=== PATIENT | female | born 1935 | race Caucasian/White ===

== ENCOUNTER 2019-06-27 09:49 | Emergency (ER) | payer MEDICARE, OTHER ==
--- NOTE | 2019-06-27 10:52 | EDM.PDOC ---
ED HPI GENERAL MEDICAL PROBLEM - General Chief Complaint: Respiratory Problem Stated Complaint: COUGHING PT HAS COPD Time Seen by Provider: 06/27/19 10:15 Source of Information: Reports: Patient, Family History Limitations: Reports: No Limitations - History of Present Illness INITIAL COMMENTS - FREE TEXT/NARRATIVE: 84-year-old female with chronic COPD, has occasional exacerbations. She has had an increasing cough and shortness of breath over the past 5 days, went into the clinic 2 days ago and was started on Zithromax. She is not improving. She does not have a fever or significant sputum production. She does have an albuterol nebulizer at home which helps. She has needed steroids in the past and she feels she is at that point. Onset: Gradual Duration: Day(s): (5-7 days) Associated Symptoms: Reports: Cough, Shortness of Breath. Denies: Chest Pain, Nausea/Vomiting, Weakness lower back Pain Score (Numeric/FACES): 3 - Related Data Allergies Allergy/AdvReac Type Severity Reaction Status Date / Time bee venom protein (honey bee) Allergy Swelling Verified 06/27/19 10:22 Home Meds: Home Meds Acyclovir [Zovirax 5% Crm] 1 gm TOP Q3H 08/03/18 [History] Ascorbate Calcium [Vitamin C] 500 mg PO ASDIRECTED 08/03/18 [History] Aspirin 81 mg PO ASDIRECTED 08/03/18 [History] Biotin 1 tab PO ASDIRECTED 08/03/18 [History] Brinzolamide [Azopt 1% Ophth Susp] 1 drop EYEBOTH BID 08/03/18 [History] Calcium Carbonate/Vitamin D3 [Calcium Carbonate/Vitamin D 600 MG-200 Unit] 1 tab PO DAILY 08/03/18 [History] Diclofenac Sodium [Voltaren] 4 gm TOP QID 08/03/18 [History] EPINEPHrine [Epinephrine] 0.3 mg IM ASDIRECTED 08/03/18 [History] Emu Oil 1 gm TOP ASDIRECTED PRN 08/03/18 [History] Gluc/Nigel-Msm#2/C/D3/Yunior/Born [Hkekmjnbso-Lpnkoatijgh-WXP] 1,500 mg PO BID 07/13 [History] Ibuprofen [Motrin] 800 mg PO BID 08/03/18 [History] Multivit-Min/Iron Fum/Folic AC [Kvcsl-Dxcgmat-Czhmljrr Tablet] 1 tab PO DAILY [History] Olmesartan Medoxomil [Benicar] 20 mg PO DAILY 08/03/18 [History] Ranitidine HCl 150 mg PO BID 08/03/18 [History] Albuterol Sulfate 3 ml INH ASDIRECTED 06/27/19 [History] Albuterol [Ventolin HFA] 2 puff INH Q4HR PRN 06/27/19 [History] Azithromycin [Zithromax] 250 mg PO ASDIRECTED 06/27/19 [History] Past Medical History HEENT History: Reports: Cataract, Glaucoma Cardiovascular History: Reports: Hypertension Respiratory History: Reports: COPD 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 Denies: Fever, Chills HEENT: Denies: Throat Pain Respiratory: Reports: Shortness of Breath, Wheezing, Cough. Denies: Sputum Cardiovascular: Denies: Chest Pain GI/Abdominal: Denies: Nausea, Vomiting Neurological: Denies: Headache ED EXAM, GENERAL - Physical Exam Exam: See Below Exam Limited By: No Limitations General Appearance: Alert, No Apparent Distress Respiratory/Chest: No Respiratory Distress, Wheezing (Diffuse expiratory wheezes , bilateral rhonchi) Cardiovascular: Regular Rate, Rhythm Extremities: No: Pedal Edema Neurological: Alert, Oriented Psychiatric: Normal Affect, Normal Mood Skin Exam: Warm, Dry Course - Vital Signs Last Recorded V/S: Last Vital Signs Temp 97.2 F 06/27/19 10:31 Pulse 113 H 06/27/19 10:31 Resp 118 H 06/27/19 10:31 BP 169/71 H 06/27/19 10:31 Pulse Ox 95 06/27/19 10:31 - Re-Assessments/Exams Free Text/Narrative Re-Assessment/Exam: 06/27/19 10:51 Patient will be placed on prednisone 50 mg daily for the next 6 days. Continue the Zithromax, and return if worsening. Departure - Departure Time of Disposition: 11:13 Disposition: Home, Self-Care 01 Clinical Impression: COPD with exacerbation - Discharge Information Instructions: Chronic Obstructive Pulmonary Disease, [id number] Referrals: Jen Rosales MD [Primary Care Provider] - Forms: ED Department Discharge Care Plan Goals: Finish the Zithromax as prescribed, take 5 pills of prednisone daily with your first food for 6 consecutive days. Return anytime if worsening despite treatment , or consider rechecking in 2-3 days if not improving satisfactorily.
== END 2019-06-27 11:13 | disposition home or self-care (01) ==
LOC: JP.ED 09:49
DX: J44.1 Chronic obstructive pulmonary disease with (acute) exacerbation (principal); I10 Essential (primary) hypertension; Z91.030 Bee allergy status; Z79.899 Other long term (current) drug therapy; Z79.82 Long term (current) use of aspirin; Z90.49 Acquired absence of other specified parts of digestive tract; Z79.51 Long term (current) use of inhaled steroids
CPT/HCPCS: 99282

== ENCOUNTER 2023-11-17 09:48 | Inpatient (IN) | payer MEDICARE, OTHER ==
[2023-11-17] MEDS ORDERED: Albuterol/Ipratropium 3.0-0.5 MG/3 ML Neb Soln NEB ONE (10:11)
[2023-11-17 10:36] LABS: BASE EXCESS VENOUS 3.1 mm/L; BICARBONATE,VENOUS 27.5 mmol/L; CARBOXYHEMOGLOBIN 2.3 % (0.0-1.6); METHEMOGLOBIN 1.1 %; O2 SATURATION VENOUS 96.7; OXYHEMOGLOBIN 93.4 %; PCO2 VENOUS 43.6 mm/Hg; PH,VENOUS 7.417 (7.350-7.450); PO2 VENOUS 85.8 mm/Hg; TOTAL HEMOGLOBIN 11.7 g/dL (12.0-16.0)
[2023-11-17 10:37] LABS: BASOPHILS ABSOLUTE AUTO 0.08 K/uL (0.00-0.10); BASOPHILS PERCENT AUTO 0.4 % (0.1-1.3); EOSINOPHILS ABSOLUTE AUTO 0.19 K/uL (0.00-0.40); HEMATOCRIT 35.1 % (34.3-46.0); HEMOGLOBIN 11.1 g/dL (11.2-15.5); IMMATURE GRAN ABSOLUTE AUTO 0.37 K/uL (0.00-0.23); IMMATURE GRAN PERCENT AUTO 1.9 % (0.0-0.7); LYMPHOCYTES ABSOLUTE AUTO 0.92 K/uL (0.8-3.3); LYMPHOCYTES PERCENT AUTO 4.8 % (11.4-47.7); MEAN CORPUSCULAR HEMOGLOBIN 29.7 pg (31.6-35.5); MEAN CORPUSCULAR HGB CONC 31.6 g/dL (31.6-35.5); MEAN CORPUSCULAR VOLUME 93.9 fL (81.4-99.0); MONOCYTES ABSOLUTE AUTO 1.16 K/uL (0.20-0.90); NEUTROPHILS PERCENT AUTO 85.9 % (40.0-78.1); PLATELET COUNT,PLT 331 K/uL (130-375); RED BLOOD CELL COUNT 3.74 M/uL (3.77-5.24); WHITE BLOOD CELL COUNT,WBC 19.3 K/uL (3.2-11.0)
[2023-11-17] MEDS ORDERED: cefTRIAXone 1 GM in Sodium Chloride 0.9% 50 ML IV ONE (10:50)
[2023-11-17 10:51] LABS: CORONAVIRUS COVID-19 NAA NEGATIVE (NEGATIVE); INFLUENZA A NAA NEGATIVE (NEGATIVE); INFLUENZA B NAA NEGATIVE (NEGATIVE); RESPIRATORY SYNCYTIAL VIR NAA NEGATIVE (NEGATIVE)
[2023-11-17] MEDS ORDERED: Sodium Chloride 0.9% 1,000 ML IV SCH (11:00)
[2023-11-17 11:06] LABS: A/G RATIO 0.7 (1.2-2.2); ALANINE AMINOTRANSFERASE,ALT 23 U/L (12-78); ALBUMIN 2.6 g/dL (3.4-5.0); ALKALINE PHOSPHATASE 81 U/L (46-116); ASPARTATE AMNIOTRANSFERASE,AST 11 U/L (15-37); BILIRUBIN TOTAL 0.2 mg/dL (0.2-1.0); BLOOD UREA NITROGEN,BUN 22 mg/dL (7-18); CALCIUM 8.5 mg/dL (8.5-10.1); CARBON DIOXIDE,CO2 29 mmol/L (21-32); CHLORIDE,CL 103 mmol/L (100-108); CREATININE 1.1 mg/dL (0.6-1.0); EST CRCL DRUG DOSING (CG) 29.94 mL/min; ESTIMATED GFR 48 mL/min (>60); GLUCOSE RANDOM 177 mg/dL (74-106); POTASSIUM,K 3.5 mmol/L (3.6-5.2); PRO B-TYPE NATRIUR PEPT,BNPPRO 1110 pg/mL (5-450); PROTEIN TOTAL,TP 6.4 g/dL (6.4-8.2); SODIUM,NA 141 mmol/L (140-148); TROPONIN I HIGH SENSITIVITY 8.9 pg/mL (<=60.3)
[2023-11-17 11:13] LABS: ANION GAP 12.5 mmol/L (5.0-14.0)
[2023-11-17] MEDS ORDERED: Iopamidol 612 MG/ML 100 ML Bottle IV ONE (11:35)
[2023-11-17] MEDS ORDERED: Sodium Chloride 0.9% 80 ML IV SCH (11:45)
[2023-11-17 11:54] LABS: APPEARANCE,URINE CLEAR (CLEAR); BILIRUBIN,URINE NEGATIVE (NEGATIVE); COLOR,URINE YELLOW (YELLOW); GLUCOSE,URINE NEGATIVE (NEGATIVE); KETONES,URINE NEGATIVE (NEGATIVE); LEUKOCYTE ESTERASE,URINE TRACE (NEGATIVE); NITRITE,URINE NEGATIVE (NEGATIVE); OCCULT BLOOD,URINE TRACE-LYSED (NEGATIVE); PROTEIN,URINE NEGATIVE (NEGATIVE); UROBILINOGEN,URINE 0.2 EU/dL (0.2-1.0)
[2023-11-17 12:02] LABS: AMORPHOUS SEDIMENT,URINE NOT SEEN; BACTERIA,URINE NOT SEEN; EPITHELIAL CELLS,URINE RARE; MUCUS,URINE NOT SEEN; RBC,URINE 0-5 (0-5); WBC,URINE 0-5 (0-5)
[2023-11-17] MEDS ORDERED: Sennosides/Docusate Sodium 50-8.6 MG Tab PO PRN (15:41)
[2023-11-17] MEDS ORDERED: Ondansetron 4 MG Tab.DIS PO PRN (15:41)
[2023-11-17] MEDS ORDERED: Ondansetron 4 MG/2 ML SDV IV PRN (15:41)
[2023-11-17] MEDS ORDERED: Magnesium Hydroxide 400 MG/5 ML Susp 30 ML Cup PO PRN (15:41)
[2023-11-17] MEDS ORDERED: Potassium Chloride 20 MEQ Tab.ER PO ONE (16:15)
[2023-11-17] MEDS: Sodium Chloride 0.9% 1,000 ML IV SCH (16:30)
[2023-11-17] MEDS: Diclofenac Sodium 1% Gel 100 GM Tube TOP SCH ×2 (16:44→21:28)
[2023-11-17] MEDS: Pantoprazole 40 MG Tab.CR PO SCH (16:46)
[2023-11-17] MEDS: Acetaminophen 325 MG Tab PO PRN ×2 (17:03→23:32)
[2023-11-17] MEDS: Albuterol/Ipratropium 3.0-0.5 MG/3 ML Neb Soln NEB SCH ×2 (17:50→21:26)
[2023-11-17] MEDS ORDERED: Doxycycline 100 MG in Sodium Chloride 0.9% 100 ML IV ONE (18:00)
[2023-11-17] MEDS ORDERED: BRINZOLAMIDE EYEBOTH SCH (21:00)
[2023-11-17] MEDS: Lactobacillus Rhamnosus GG (Probiotic) Cap PO SCH (21:27)
[2023-11-17] MEDS: Melatonin 3 MG Tab PO PRN (21:27)
[2023-11-17] MEDS: Enoxaparin 40 MG/0.4 ML Syringe SUBCUT SCH (21:28)
[2023-11-17] MEDS: guaiFENesin/Dextromethorphan 100-10 MG/5 ML Soln 10 ML Cup PO PRN (23:32)
[2023-11-17] MEDS: Benzonatate 100 MG Cap PO PRN (23:32)
[2023-11-18] MEDS: guaiFENesin/Dextromethorphan 100-10 MG/5 ML Soln 10 ML Cup PO PRN ×2 (04:16→22:30)
[2023-11-18] MEDS: Albuterol 0.083% 2.5 MG/3 ML Neb Soln NEB PRN (05:39)
[2023-11-18] MEDS: Doxycycline 100 MG Cap PO SCH ×2 (05:40→17:26)
[2023-11-18] MEDS: Diclofenac Sodium 1% Gel 100 GM Tube TOP SCH ×4 (05:42→21:07)
[2023-11-18 05:54] LABS: HEMATOCRIT 34.4 % (34.3-46.0); HEMOGLOBIN 10.7 g/dL (11.2-15.5); MEAN CORPUSCULAR HEMOGLOBIN 29.5 pg (31.6-35.5); MEAN CORPUSCULAR HGB CONC 31.1 g/dL (31.6-35.5); MEAN CORPUSCULAR VOLUME 94.8 fL (81.4-99.0); RED BLOOD CELL COUNT 3.63 M/uL (3.77-5.24); WHITE BLOOD CELL COUNT,WBC 15.5 K/uL (3.2-11.0)
[2023-11-18 06:09] LABS: ANION GAP 5.9 mmol/L (5.0-14.0); CALCIUM 8.5 mg/dL (8.5-10.1); CREATININE 0.8 mg/dL (0.6-1.0); EST CRCL DRUG DOSING (CG) 41.17 mL/min; POTASSIUM,K 3.7 mmol/L (3.6-5.2)
[2023-11-18] MEDS: Sodium Chloride 0.9% 1,000 ML IV SCH (06:54)
[2023-11-18] MEDS: Albuterol/Ipratropium 3.0-0.5 MG/3 ML Neb Soln NEB SCH ×4 (07:28→21:06)
[2023-11-18] MEDS ORDERED: Non-Formulary Medication 1 Each (Hydrochlorothiazide [Hydrochlorothiazide] 12.5 MG Tablet) PO SCH (09:00)
[2023-11-18] MEDS ORDERED: Aspirin 81 MG Tab.Chew PO SCH (09:00)
[2023-11-18] MEDS ORDERED: OLMESARTAN MEDOXOMIL 20 MG PO SCH (09:00)
[2023-11-18] MEDS ORDERED: OPTH EYEBOTH SCH (09:30)
[2023-11-18] MEDS ORDERED: BRINZOLAMIDE 1% EYEBOTH SCH (09:30)
[2023-11-18] MEDS: Hydrochlorothiazide 12.5 MG Cap PO SCH (09:43)
[2023-11-18] MEDS: Lactobacillus Rhamnosus GG (Probiotic) Cap PO SCH ×2 (09:43→21:06)
[2023-11-18] MEDS: Aspirin 81 MG Tab.Chew PO SCH (09:43)
[2023-11-18] MEDS: OPTH EYEBOTH SCH ×3 (09:46→21:06)
[2023-11-18] MEDS: OLMESARTAN 40 MG PO SCH (09:46)
[2023-11-18] MEDS: BRINZOLAMIDE 1% EYEBOTH SCH ×3 (09:46→21:06)
[2023-11-18] MEDS: cefTRIAXone 1 GM in Sodium Chloride 0.9% 50 ML IV SCH (11:19)
[2023-11-18] MEDS ORDERED: Sodium Chloride 0.9% 80 ML IV SCH (13:00)
[2023-11-18] MEDS ORDERED: Iopamidol 612 MG/ML 100 ML Bottle IV ONE (13:00)
[2023-11-18] MEDS: Pantoprazole 40 MG Tab.CR PO SCH (16:24)
[2023-11-18] MEDS: Enoxaparin 40 MG/0.4 ML Syringe SUBCUT SCH (21:06)
[2023-11-18] MEDS: Melatonin 3 MG Tab PO PRN (21:17)
[2023-11-18] MEDS: Benzonatate 100 MG Cap PO PRN (22:30)
[2023-11-19] MEDS: guaiFENesin/Dextromethorphan 100-10 MG/5 ML Soln 10 ML Cup PO PRN ×3 (02:34→21:25)
[2023-11-19] MEDS: Albuterol 0.083% 2.5 MG/3 ML Neb Soln NEB PRN (02:48)
[2023-11-19] MEDS: Benzocaine/Cetylpyridinium/Menthol Lozenge MUCMEM PRN ×3 (03:21→16:16)
[2023-11-19] MEDS: Doxycycline 100 MG Cap PO SCH ×2 (05:37→17:10)
[2023-11-19] MEDS: Diclofenac Sodium 1% Gel 100 GM Tube TOP SCH ×4 (05:37→21:26)
[2023-11-19 05:45] LABS: HEMATOCRIT 34.4 % (34.3-46.0); HEMOGLOBIN 10.7 g/dL (11.2-15.5); MEAN CORPUSCULAR HEMOGLOBIN 29.6 pg (31.6-35.5); MEAN CORPUSCULAR HGB CONC 31.1 g/dL (31.6-35.5); RED BLOOD CELL COUNT 3.62 M/uL (3.77-5.24); WHITE BLOOD CELL COUNT,WBC 13.2 K/uL (3.2-11.0)
[2023-11-19] MEDS: Albuterol/Ipratropium 3.0-0.5 MG/3 ML Neb Soln NEB SCH ×4 (07:06→21:20)
[2023-11-19] MEDS: Lactobacillus Rhamnosus GG (Probiotic) Cap PO SCH ×2 (09:51→21:25)
[2023-11-19] MEDS: Hydrochlorothiazide 12.5 MG Cap PO SCH (09:51)
[2023-11-19] MEDS: OLMESARTAN 40 MG PO SCH (09:52)
[2023-11-19] MEDS: OPTH EYEBOTH SCH ×3 (09:52→21:25)
[2023-11-19] MEDS: BRINZOLAMIDE 1% EYEBOTH SCH ×3 (09:52→21:25)
[2023-11-19] MEDS: cefTRIAXone 1 GM in Sodium Chloride 0.9% 50 ML IV SCH (11:01)
[2023-11-19] MEDS: Pantoprazole 40 MG Tab.CR PO SCH (16:16)
[2023-11-19] MEDS: Benzonatate 100 MG Cap PO PRN (16:16)
[2023-11-19] MEDS ORDERED: diphenhydrAMINE 25 MG Cap PO ONE (21:00)
[2023-11-19] MEDS: Melatonin 3 MG Tab PO PRN (21:25)
[2023-11-19] MEDS: Enoxaparin 40 MG/0.4 ML Syringe SUBCUT SCH (21:25)
[2023-11-20] MEDS: Albuterol 0.083% 2.5 MG/3 ML Neb Soln NEB PRN (00:29)
[2023-11-20] MEDS: Diclofenac Sodium 1% Gel 100 GM Tube TOP SCH ×4 (06:04→21:39)
[2023-11-20] MEDS: Doxycycline 100 MG Cap PO SCH ×2 (06:04→17:06)
[2023-11-20 06:17] LABS: HEMATOCRIT 33.3 % (34.3-46.0); HEMOGLOBIN 10.3 g/dL (11.2-15.5); MEAN CORPUSCULAR HEMOGLOBIN 29.3 pg (31.6-35.5); MEAN CORPUSCULAR HGB CONC 30.9 g/dL (31.6-35.5); MEAN CORPUSCULAR VOLUME 94.6 fL (81.4-99.0); RED BLOOD CELL COUNT 3.52 M/uL (3.77-5.24); WHITE BLOOD CELL COUNT,WBC 11.5 K/uL (3.2-11.0)
[2023-11-20 06:31] LABS: C-REACTIVE PROTEIN 9.28 mg/dL (<0.50); CALCIUM 8.5 mg/dL (8.5-10.1); CREATININE 0.8 mg/dL (0.6-1.0); EST CRCL DRUG DOSING (CG) 41.17 mL/min; POTASSIUM,K 3.6 mmol/L (3.6-5.2)
[2023-11-20 06:42] LABS: ANION GAP 8.6 mmol/L (5.0-14.0)
[2023-11-20] MEDS: Albuterol/Ipratropium 3.0-0.5 MG/3 ML Neb Soln NEB SCH ×4 (07:36→20:25)
[2023-11-20] MEDS: BRINZOLAMIDE 1% EYEBOTH SCH ×3 (08:51→20:25)
[2023-11-20] MEDS: OPTH EYEBOTH SCH ×3 (08:51→20:25)
[2023-11-20] MEDS: Aspirin 81 MG Tab.Chew PO SCH (08:51)
[2023-11-20] MEDS: Hydrochlorothiazide 12.5 MG Cap PO SCH (08:51)
[2023-11-20] MEDS: OLMESARTAN 40 MG PO SCH (08:52)
[2023-11-20] MEDS: Lactobacillus Rhamnosus GG (Probiotic) Cap PO SCH ×2 (08:52→20:25)
[2023-11-20] MEDS: cefTRIAXone 1 GM in Sodium Chloride 0.9% 50 ML IV SCH (11:19)
[2023-11-20] MEDS: Benzocaine/Cetylpyridinium/Menthol Lozenge MUCMEM PRN (15:08)
[2023-11-20] MEDS: Pantoprazole 40 MG Tab.CR PO SCH (17:05)
[2023-11-20] MEDS: Benzonatate 100 MG Cap PO PRN (18:10)
[2023-11-20] MEDS: Enoxaparin 40 MG/0.4 ML Syringe SUBCUT SCH (20:25)
[2023-11-20] MEDS ORDERED: diphenhydrAMINE 25 MG Cap PO ONE (21:10)
[2023-11-20] MEDS: Acetaminophen 325 MG Tab PO PRN (21:31)
[2023-11-20] MEDS: guaiFENesin/Dextromethorphan 100-10 MG/5 ML Soln 10 ML Cup PO PRN (22:14)
[2023-11-21] MEDS: Albuterol 0.083% 2.5 MG/3 ML Neb Soln NEB PRN ×2 (00:38→06:09)
[2023-11-21] MEDS: Diclofenac Sodium 1% Gel 100 GM Tube TOP SCH ×4 (06:06→21:09)
[2023-11-21] MEDS: guaiFENesin/Dextromethorphan 100-10 MG/5 ML Soln 10 ML Cup PO PRN (06:09)
[2023-11-21] MEDS: Benzonatate 100 MG Cap PO PRN (06:09)
[2023-11-21] MEDS: Benzocaine/Cetylpyridinium/Menthol Lozenge MUCMEM PRN ×2 (06:10→13:22)
[2023-11-21] MEDS: Doxycycline 100 MG Cap PO SCH ×2 (06:10→17:01)
[2023-11-21] MEDS: Albuterol/Ipratropium 3.0-0.5 MG/3 ML Neb Soln NEB SCH ×4 (06:58→20:09)
[2023-11-21] MEDS: Lactobacillus Rhamnosus GG (Probiotic) Cap PO SCH ×2 (08:49→20:10)
[2023-11-21] MEDS: BRINZOLAMIDE 1% EYEBOTH SCH ×3 (08:50→20:11)
[2023-11-21] MEDS: OPTH EYEBOTH SCH ×3 (08:50→20:11)
[2023-11-21] MEDS: Cefdinir 300 MG Cap PO SCH ×2 (08:50→20:10)
[2023-11-21] MEDS: Hydrochlorothiazide 12.5 MG Cap PO SCH (08:50)
[2023-11-21] MEDS: OLMESARTAN 40 MG PO SCH (08:51)
[2023-11-21] MEDS: Pantoprazole 40 MG Tab.CR PO SCH (17:01)
[2023-11-21] MEDS: Enoxaparin 40 MG/0.4 ML Syringe SUBCUT SCH (20:10)
[2023-11-21] MEDS ORDERED: Codeine/guaiFENesin 10-100 MG/5 ML Syrup 5 ML Cup PO SCH (21:00)
[2023-11-22] MEDS: Albuterol 0.083% 2.5 MG/3 ML Neb Soln NEB PRN (04:04)
[2023-11-22] MEDS: Doxycycline 100 MG Cap PO SCH (06:17)
[2023-11-22] MEDS: Diclofenac Sodium 1% Gel 100 GM Tube TOP SCH ×2 (06:17→10:31)
[2023-11-22] MEDS: Albuterol/Ipratropium 3.0-0.5 MG/3 ML Neb Soln NEB SCH ×2 (07:02→11:07)
[2023-11-22] MEDS: OPTH EYEBOTH SCH (09:00)
[2023-11-22] MEDS: OLMESARTAN 40 MG PO SCH (09:00)
[2023-11-22] MEDS: Lactobacillus Rhamnosus GG (Probiotic) Cap PO SCH (09:00)
[2023-11-22] MEDS: BRINZOLAMIDE 1% EYEBOTH SCH (09:00)
[2023-11-22] MEDS: Cefdinir 300 MG Cap PO SCH (09:00)
[2023-11-22] MEDS: Hydrochlorothiazide 12.5 MG Cap PO SCH (09:00)
== END 2023-11-22 13:25 | disposition home or self-care (01) | DRG 189 ==
LOC: JP.ED 09:48 → JP.MS 14:21
PROVIDERS: ADMIT Internal Medicine; ATTEND Internal Medicine
PROC: 4A033R1 Measurement of Arterial Saturation, Peripheral, Percutaneous Approach (ICD-10-PCS; principal; 2023-11-17)
DX: A41.9 Sepsis, unspecified organism (principal); J18.9 Pneumonia, unspecified organism; J44.9 Chronic obstructive pulmonary disease, unspecified; J96.01 Acute respiratory failure with hypoxia; Z90.49 Acquired absence of other specified parts of digestive tract; J44.1 Chronic obstructive pulmonary disease with (acute) exacerbation; J44.0 Chronic obstructive pulmonary disease with (acute) lower respiratory infection; J20.9 Acute bronchitis, unspecified; I10 Essential (primary) hypertension; Z96.649 Presence of unspecified artificial hip joint; R91.8 Other nonspecific abnormal finding of lung field; H40.9 Unspecified glaucoma; Z66 Do not resuscitate; Z91.030 Bee allergy status; Z79.82 Long term (current) use of aspirin; Z79.51 Long term (current) use of inhaled steroids; Z79.899 Other long term (current) drug therapy; Z90.89 Acquired absence of other organs; Z98.890 Other specified postprocedural states; Z11.52 Encounter for screening for COVID-19
CPT/HCPCS: 0241U; 36415; 71045; 71045-26; 71275; 71275-26; 74177; 74177-26; 80048; 80053; 81001; 82803; 83605; 83880; 84145; 84484; 85025; 85027; 85379; 86140; 87040; 87070; 87205; 93005; 93010; 94640; 94667; 94668; 96361; 96365; 99222; 99232; 99238; 99285; 99285-25; A9270-GY; J0696; J1650; J3490; J7030; J7509; J7620; Q9967